=== PATIENT | male | born 1995 | race Two or more races ===

== ENCOUNTER 2018-11-24 14:12 | Outpatient (CLI) | payer OTHER ==
[~2018-11-24] VITALS: Ht 172.7 cm; Wt 68.0 kg
[2018-11-24] MEDS ORDERED: albuterol 2.5 MG/3 ML nebule NEB ONE (16:20)
== END 2018-11-24 23:59 | disposition home or self-care (01) ==
LOC: CARD DIAG 14:12
PROVIDERS: ATTEND Orthopaedic Surgery
DX: I08.1 Rheumatic disorders of both mitral and tricuspid valves (principal); I25.10 Atherosclerotic heart disease of native coronary artery without angina pectoris; J44.9 Chronic obstructive pulmonary disease, unspecified
CPT/HCPCS: 71046; 93306; 94060; 94729; 94760